=== PATIENT | male | born 1955 | race African-American/Black ===

== ENCOUNTER 2018-08-16 09:00 | Emergency (ER) | payer OTHER ==
[2018-08-16 09:18] VITALS: BMI 28.9
--- NOTE | 2018-08-16 09:39 | PDOC ---
History of Present Illness - General Chief Complaint: Pain, Acute Stated Complaint: LEG PAIN Time Seen by Provider: 08/16/18 09:24 History Source: Patient Exam Limitations: No Limitations - History of Present Illness Initial Comments: 63 yo M history HL, CHF, gout, DM, polymyositis presents with RLE pain. He states that in late July he fell and injured his knee, sustaining a meniscal tear. He has been taking ibuprofen for pain and avoiding ambulation, as it worsens the pain. He followed up with ortho 3 days ago, where about 50cc of fluid were aspirated and he was told he did not need surgical repair. He states that today he noticed swelling to the R foot and noticed that it appeared darker than the L foot. He also noticed that he was having difficulty ambulating out of bedroom when EMS arrived due to SOB. Past History - Past Medical History Allergies/Adverse Reactions: Allergies Allergy/AdvReac Type Severity Reaction Status Date / Time No Known Allergies Allergy Unverified 08/16/18 09:29 Home Medications: Ambulatory Orders Allopurinol [Zyloprim -] 300 mg PO DAILY 08/16/18 Aspirin [ASA -] 81 mg PO DAILY 08/16/18 Ezetimibe [Zetia] 10 mg PO DAILY 08/16/18 Ibuprofen 600 mg PO PRN 08/16/18 Metformin HCl [Glucophage] 500 mg PO DAILY 08/16/18 Oxycodone HCl/Acetaminophen [Percocet 5-325 mg Tablet] 1 - 2 tab PO Q6H PRN #20 tab MDD 8 tabs 08/16/18 Prednisone [Deltasone] 20 mg PO DAILY 08/16/18 Walker [Ultra-Light Rollator] 1 each ASDIR #1 each 08/16/18 predniSONE [Deltasone -] 20 mg PO DAILY #5 tablet 08/16/18 Cardiac Disorders: Yes (chf) COPD: No CHF: Yes Diabetes: Yes Hypercholesterolemia: Yes Kidney Stones: Yes Other medical history: gout - Suicide/Smoking/Psychosocial Hx Smoking History: Former smoker Have you smoked in the past 12 months: No Information on smoking cessation initiated: No Hx Alcohol Use: No Drug/Substance Use Hx: No Review of Systems - Review of Systems Able to Perform ROS?: Yes Comments:: GENERAL/CONSTITUTIONAL: No fever or chills. No weakness. HEAD, EYES, EARS, NOSE AND THROAT: No change in vision. No ear pain or discharge. No sore throat. CARDIOVASCULAR: No chest pain. +Shortness of breath. RESPIRATORY: No cough, wheezing, or hemoptysis. GASTROINTESTINAL: No nausea, vomiting, diarrhea or constipation. GENITOURINARY: No dysuria, frequency, or change in urination. MUSCULOSKELETAL: +R knee pain and swelling. No neck or back pain. SKIN: No rash NEUROLOGIC: No headache, vertigo, loss of consciousness, or change in strength/ sensation. ENDOCRINE: No increased thirst. No abnormal weight change. HEMATOLOGIC/LYMPHATIC: No anemia, easy bleeding, or history of blood clots. ALLERGIC/IMMUNOLOGIC: No hives or skin allergy. *Physical Exam - Vital Signs Last Vital Signs Temp Pulse Resp BP Pulse Ox 98.7 F 110 H 20 123/83 100 08/16/18 09:02 08/16/18 09:02 08/16/18 09:02 08/16/18 09:02 08/16/18 09:02 - Physical Exam Comments: GENERAL: Awake, alert, and fully oriented, in no acute distress HEAD: No signs of trauma EYES: PERRLA, EOMI, sclera anicteric, conjunctiva clear ENT: Auricles normal inspection, hearing grossly normal, nares patent, oropharynx clear without exudates. Moist mucosa NECK: Normal ROM, supple, no lymphadenopathy, JVD, or masses LUNGS: Breath sounds equal, clear to auscultation bilaterally. No wheezes, and no crackles HEART: Regular rate and rhythm, normal S1 and S2, no murmurs, rubs or gallops ABDOMEN: Soft, nontender, normoactive bowel sounds. No guarding, no rebound. No masses EXTREMITIES: RLE with pain on ROM of the knee, noted to have mod effusion. No warmth, no redness. 1+ pitting edema to R foot. Remainder of extremities with normal range of motion. No clubbing or cyanosis. No cords, erythema, or tenderness NEUROLOGICAL: Cranial nerves II through XII grossly intact. Normal speech. Motor and sensation intact. Ambulation limited by knee pain. SKIN: Warm, Dry, normal turgor, no rashes or lesions noted. Moderate Sedation - Procedure Monitoring Vital Signs: Procedure Monitoring Vital Signs Temperature 98.7 F 08/16/18 09:02 Pulse Rate 110 H 08/16/18 09:02 Respiratory Rate 20 08/16/18 09:02 Blood Pressure 123/83 08/16/18 09:02 O2 Sat by Pulse Oximetry (%) 100 08/16/18 09:02 ED Treatment Course - LABORATORY CBC & Chemistry Diagram: 08/16/18 09:52 08/16/18 09:52 Medical Decision Making - Medical Decision Making 08/16/18 09:46 Pt with recent immobilization due to knee pain, now with R foot swelling, GONZALEZ. History of multiple inflammatory conditions. Will obtain duplex RLE. If neg, will obtain CTA. 08/16/18 11:41 Duplex negative for DVT (however, a pickett cyst was visualized). CMP has resulted. Will send for CTA to r/o PE. 08/16/18 15:33 CTA negative. No signs of fluid overload. Will DC home with ortho f/u and pain medication. Will not tap the knee, as there are no signs of infection, it was tapped recently, and I would like to avoid possible exposure to infection. *DC/Admit/Observation/Transfer Diagnosis at time of Disposition: Pickett cyst Qualifiers: Laterality: right Qualified Code(s): M71.21 - Synovial cyst of popliteal space [Pickett], right knee - Discharge Dispostion Disposition: HOME Condition at time of disposition: Stable Decision to Admit order: No - Prescriptions Prescriptions: Oxycodone HCl/Acetaminophen [Percocet 5-325 mg Tablet] 1 - 2 tab PO Q6H PRN #20 tab MDD 8 tabs PRN Reason: Severe Pain predniSONE [Deltasone -] 20 mg PO DAILY #5 tablet Walker [Ultra-Light Rollator] 1 each ASDIR #1 each - Referrals Referrals: Zafar Li DO [Staff Physician] - - Patient Instructions Printed Discharge Instructions: DI for Pickett's Cyst - Post Discharge Activity
[2018-08-16 11:30] LABS: BLOOD UREA NITROGEN 15 mg/dL (7-18); CREATININE 0.7 mg/dL (0.55-1.3); GLUCOSE,RANDOM 95 mg/dL (74-106); POTASSIUM 4.2 mmol/L (3.5-5.1); SODIUM 132 mmol/L (136-145)
[2018-08-16 11:31] LABS: ALBUMIN 3.4 g/dl (3.4-5.0); ALK PHOS 103 U/L (45-117); ANION GAP 9 MMOL/L (8-16); BILIRUBIN,TOTAL 0.8 mg/dL (0.2-1); CALCIUM 9.3 mg/dL (8.5-10.1); CHLORIDE 97 mmol/L (98-107); CO2 26 mmol/L (21-32); SGOT/AST 32 U/L (15-37); SGPT/ALT 50 U/L (13-61); TOT PROT 7.6 g/dl (6.4-8.2)
[2018-08-16 11:32] LABS: N-TERMINAL BNP 218.9 pg/ml (5-125)
[2018-08-16 12:49] LABS: INR 1.24 (0.83-1.09); PROTHROMBIN TIME (PATIENT) 14.7 SEC (9.7-13.0)
[2018-08-16 13:19] LABS: BASO % 0.7 % (0-2.0); EOS % 1.1 % (0-4.5); LYMPH % 17.3 % (8-40); MCH 21.6 pg (25.7-33.7); MEAN CELL VOLUME 67.7 fl (80-96); MEAN PLT VOLUME 8.7 fl (7.5-11.1); MONO % 11.6 % (3.8-10.2); NEUT % 69.3 % (42.8-82.8); PLATELET COUNT 286 K/MM3 (134-434); RBC 4.14 M/mm3 (4.00-5.60); RDW 26.8 % (11.9-15.9)
[2018-08-16 15:08] VITALS: BP 112/72; PULSE 96; TEMP 98
--- NOTE | 2018-08-16 16:25 | EKG ---
Test Reason : Blood Pressure : / mmHG Vent. Rate : 108 BPM Atrial Rate : 108 BPM P-R Int : 126 ms QRS Dur : 112 ms QT Int : 364 ms P-R-T Axes : -09 -10 163 degrees QTc Int : 487 ms SINUS TACHYCARDIA WITH OCCASIONAL PREMATURE VENTRICULAR COMPLEXES LEFT ATRIAL ENLARGEMENT LEFT VENTRICULAR HYPERTROPHY WITH REPOLARIZATION ABNORMALITY ABNORMAL ECG NO PREVIOUS ECGS AVAILABLE Confirmed by MD EILEEN, CAPRICE ([id number]) on 08/16/2018 4:25:15 PM Referred By: Confirmed By:CAPRICE ARELLANO MD
[2018-08-16 20:00] LABS: ANISOCYTOSIS 1+; MACROCYTOSIS 0; PLATELET ESTIMATE NORMAL
== END 2018-08-16 15:59 | disposition home or self-care (01) ==
LOC: JER 09:00
DX: M71.21 Synovial cyst of popliteal space [Baker], right knee (principal); I50.9 Heart failure, unspecified; E11.9 Type 2 diabetes mellitus without complications; Z79.84 Long term (current) use of oral hypoglycemic drugs; M10.9 Gout, unspecified; R26.89 Other abnormalities of gait and mobility; Z99.89 Dependence on other enabling machines and devices
CPT/HCPCS: 36415; 71275-TC; 73562-TC-RT-FY; 80053; 83880; 85025; 85610; 87040; 93005; 93010; 93971-TC; 99283-25